=== PATIENT | male | born 1970 | race Caucasian/White ===

== ENCOUNTER 2017-04-26 11:25 | Emergency (ER) | payer BC ==
[~2017-04-26] VITALS: Ht 182.9 cm; Wt 86.2 kg
[~2017-04-26 11:25] MED LIST: LOR5/325 PO
--- NOTE | 2017-04-26 11:36 | ER Report ---
History and Physical Time Seen By MD: 11:36 Hx. of Stated Complaint: left leg pain and back pain for 2 weeks. patient has been to urgent care and chiropractor HPI/ROS CHIEF COMPLAINT: Back pain, pain radiates down left leg HISTORY OF PRESENT ILLNESS: 46-year-old male patient presents to emergency room with complaint of back pain. Patient states that the pain started when he was traveling back from [place]. States he and his ago and therefore vacation. On returning he felt like being cramped in the airline seats cause the pain. He states that going to the truck and then coming home cause may be worse. He states that for couple days he didn't do anything and then he went and saw urgent care. He states that there he was diagnosed with sciatica and was placed on a muscle relaxer as well as anti-inflammatory. He states that that did not seem to help. He states that he then went to see a chiropractor who did some adjustments but states that he needed to follow-up with orthopedics. He states there is nothing seems to make the pain better. He states that today he has some tingling to his left foot. He has good strength with movement. REVIEW OF SYSTEMS: Respiratory: No cough, no dyspnea. Cardiovascular: No chest pain, no palpitations. Gastrointestinal: No vomiting, no abdominal pain. Musculoskeletal: As noted above Allergies: Coded Allergies: Penicillins (Verified Allergy, Unknown, 08/17/16) Home Meds Active Scripts Clonidine Hcl (CLONIDINE HCL) 0.1 Mg Tablet, 0.1 MG PO BID, #30 TAB Prov:SERGIO ROSAS 04/26/17 Cyclobenzaprine Hcl (CYCLOBENZAPRINE HCL) 10 Mg Tablet, 5-10 MG PO TID Y for MUSCLE SPASMS, #30 TAB Prov:SERGIO ROSAS 04/26/17 Methylprednisolone (METHYLPREDNISOLONE) 4 Mg Tab.ds.pk, 4 MG PO DIRECTED, #1 PACK Prov:SERGIO ROSAS 04/26/17 Hydrocodone Bit/Acetaminophen (HYDROCODON-ACETAMINOPHEN 5-325) 1 Each Tablet, 1 EACH PO Q4-6H Y for PAIN, #12 TAB Prov:SERGIO ROSAS 04/26/17 Reported Medications Ibuprofen (IBUPROFEN) 200 Mg Tablet, 1 TAB PO Q6H, TAB 04/26/17 Discontinued Scripts Hydrocodone Bit/Acetaminophen (HYDROCODON-ACETAMINOPHEN 5-325) 1 Each Tablet, 1 EACH PO Q4-6H, #10 TAB 0 Refills Prov:JOEL POTTS [employer] DIRECT[employer] 08/17/16 Past Medical/Surgical History Patient has a past medical history of back injury. Patient has surgical history of a disc removal. Reviewed Nurses Notes: Yes Hx Substance Use Disorder: No Constitutional Vital Sign - Last 24 Hours 04/26/17 04/26/17 04/26/17 04/26/17 11:29 11:32 11:33 11:40 Temp 98.6 Pulse 108 102 Resp 20 B/P (MAP) 198/134 198/134 (155) 196/130 (152) Pulse Ox 93 94 O2 Delivery Room Air 04/26/17 04/26/17 04/26/17 04/26/17 11:55 12:00 12:23 12:25 Pulse 84 94 B/P (MAP) 176/112 (133) 175/136 (149) Pulse Ox 95 96 04/26/17 04/26/17 04/26/17 04/26/17 12:30 12:45 13:00 13:05 Pulse 92 89 82 87 B/P (MAP) 175/116 (135) 176/125 (142) Pulse Ox 94 96 94 95 04/26/17 04/26/17 04/26/17 13:10 13:15 13:20 Pulse 92 90 B/P (MAP) 198/124 (148) Pulse Ox 95 93 Physical Exam General Appearance: The patient is alert, has no immediate need for airway protection and no current signs of toxicity. ENT: Tympanic membranes are pearly-contreras, auditory canals are patent, mucous membranes are moist. Respiratory: Chest is non tender, lungs are clear to auscultation. Cardiac: regular rate and rhythm Gastrointestinal: Abdomen is soft and non tender, no masses, bowel sounds normal. Musculoskeletal: Neck: Neck is supple and non tender. Extremities have full range of motion and are non tender. Back: Patient has tenderness to the low back, seems to be worse over the sciatica, however does have pain over the lateral aspect of the left buttock seems to radiate down the leg with palpation. Patient had good sensation and was able to do a straight leg lift. Skin: No rashes or lesions. DIFFERENTIAL DIAGNOSIS: After history and physical exam differential diagnosis was considered for sciatica, back strain, bulging disc, compressed nerve. Medical Decision Making EKG/Imaging Imaging Lumbar spine Indication: Back pain radiating down left leg Comparison: None available FINDINGS: 5 views of the lumbar spine were obtained. There are 5 lumbar type vertebral bodies. The lumbar alignment is normal. No lumbar compression fracture. Mild degenerative disc disease L4-L5. The oblique views reveal mild facet osteoarthritis of the low lumbar spine bilaterally. IMPRESSION: 1. Degenerative disc disease of mild severity L4-L5. 2. 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 Report Dictated By: Steven Wright at 04/26/2017 12:33 PM Report E-Signed By: Steven Wright at 04/26/2017 12:36 PM SACROILIAC JOINTS 3 OR > VIEWS Indication: Back pain radiating into the lower legs. Comparison: None available. Findings: Frontal and both oblique views are obtained of the bilateral sacroiliac joints. The sacroiliac joints appear normal. No joint centered abnormality. No evidence of sacroiliitis. Pubic symphysis and sacroiliac joints are appropriately aligned. IMPRESSION: 1. Normal bilateral sacroiliac joints. Report Dictated By: Steven Wright at 04/26/2017 12:36 PM Report E-Signed By: Steven Wright at 04/26/2017 12:37 PM ED Course/Re-evaluation ED Course Patient was admitted and examined, history and physical were obtained. Differential diagnoses were considered. On reexamination patient had tenderness to the left hip, and up to the back. X-rays done of the lumbar spine, SI joints. The SI joints are unremarkable, patient had mild degenerative disc disease in the L4-L5 region. I discussed findings with the patient. With no acute findings we will go ahead and place him on prednisone as I believe that he is having some nerve root impingement starting in the low back. We will go ahead and place the patient on a Medrol Dosepak, give him a limited supply of pain medication as well as muscle relaxer. He is to follow-up with orthopedics. I did give him information for Dr. Telles. I discussed this with the patient who verbalized understanding and agreement with plan. Decision to Disposition Date: Apr 26, 2017 Decision to Disposition Time: 12:51 Depart Departure Latest Vital Signs Vital Signs Date Time Temp Pulse Resp B/P (MAP) Pulse Ox O2 Delivery O2 Flow Rate FiO2 04/26/17 13:20 198/124 (148) 04/26/17 13:15 90 93 04/26/17 11:29 98.6 20 Room Air Impression: Primary Impression: Low back pain Additional Impression: Hypertension Condition: Improved Disposition: HOME OR SELF-CARE Referrals: FADY TELLES MD New Scripts Clonidine Hcl (CLONIDINE HCL) 0.1 Mg Tablet 0.1 MG PO BID, #30 TAB Prov: SERGIO ROSAS 04/26/17 Cyclobenzaprine Hcl (CYCLOBENZAPRINE HCL) 10 Mg Tablet 5-10 MG PO TID Y for MUSCLE SPASMS, #30 TAB Prov: SERGIO ROSAS 04/26/17 Methylprednisolone (METHYLPREDNISOLONE) 4 Mg Tab.ds.pk 4 MG PO DIRECTED, #1 PACK Prov: SERGIO ROSAS 04/26/17 Hydrocodone Bit/Acetaminophen (HYDROCODON-ACETAMINOPHEN 5-325) 1 Each Tablet 1 EACH PO Q4-6H Y for PAIN, #12 TAB Prov: SERGIO ROSAS 04/26/17 Patient Instructions: Acute Low Back Pain (ED) Additional Instructions: Limit activity by pain. Get plenty of rest. Return to the ER if condition worsens. Take prescriptions as prescribed. Follow up with Dr. Telles at [facility]. Follow up with a primary care provider to discuss your blood pressure. Th goal is to decrease inflammation along the nerve root and decrease you discomfort. Problem Qualifiers Primary Impression: Low back pain Chronicity: acute Back pain laterality: left Sciatica presence: with sciatica Sciatica laterality: sciatica of left side Qualified Codes: M54.42 - Lumbago with sciatica, left side Additional Impression: Hypertension Hypertension type: unspecified Qualified Codes: I10 - Essential (primary) hypertension SERGIO ROSAS Apr 26, 2017 11:36
[2017-04-26] MEDS ORDERED: IBUP-56 PO (11:37)
--- NOTE | 2017-04-26 12:40 | RADIOLOGY IMAGING REPORT ---
FACILITY: [facility] - [place] PATIENT NAME: Juan Carlos Mcghee : 1970 MR: [id number] V: [id number] EXAM DATE: ORDERING PHYSICIAN: SERGIO ROSAS TECHNOLOGIST: Location: [facility] - [place] Patient: Juan Carlos Mcghee : 1970 Visit/Account:[id number] Date of Sevice: 04/26/2017 Lumbar spine Indication: Back pain radiating down left leg Comparison: None available FINDINGS: 5 views of the lumbar spine were obtained. There are 5 lumbar type vertebral bodies. The lumbar alignment is normal. No lumbar compression fracture. Mild degenerative disc disease L4-L5. The oblique views reveal mild facet osteoarthritis of the low l umbar spine bilaterally. IMPRESSION: 1. Degenerative disc disease of mild severity L4-L5. 2. 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 Report Dictated By: Steven Wright at 04/26/2017 12:33 PM Report E-Signed By: Steven Wright at 04/26/2017 12:36 PM WSN:[id number]
--- NOTE | 2017-04-26 12:42 | RADIOLOGY IMAGING REPORT ---
FACILITY: [facility] - [place] PATIENT NAME: Juan Carlos Mcghee : 1970 MR: [id number] V: [id number] EXAM DATE: ORDERING PHYSICIAN: SERGIO ROSAS TECHNOLOGIST: Location: [facility] [place] Patient: Juan Carlos Mcghee : 1970 Visit/Account:[id number] Date of Sevice: 04/26/2017 SACROILIAC JOINTS 3 OR > VIEWS Indication: Back pain radiating into the lower legs. Comparison: None available. Findings: Frontal and both oblique views are obtained of the bilateral sacroiliac joints. The sacroiliac joints appear normal. No joint centered abnormality. No evidence of sacroiliitis. Pubic symphysis and sacro iliac joints are appropriately aligned. IMPRESSION: 1. Normal bilateral sacroiliac joints. Report Dictated By: Steven Wright at 04/26/2017 12:36 PM Report E-Signed By: Steven Wright at 04/26/2017 12:37 PM WSN:[id number]
[2017-04-26] MEDS ORDERED: APAP/HYDROCODONE 325/5 TAB PO ONE (12:50)
[2017-04-26] MEDS ORDERED: cloNIDine HCL 0.1 MG TAB PO ONE (12:50)
[2017-04-26] MEDS ORDERED: HYDR-385 PO (12:53)
[2017-04-26] MEDS ORDERED: CLON-327 PO (12:53)
[2017-04-26] MEDS ORDERED: CYCL10TA29 PO (12:53)
[2017-04-26] MEDS ORDERED: METH4TAB66 PO (12:53)
[2017-04-26 13:20] VITALS: BP 198/124
== END 2017-04-26 13:28 | disposition home or self-care (01) ==
LOC: ER 11:35
DX: M54.42 Lumbago with sciatica, left side (principal); I10 Essential (primary) hypertension
CPT/HCPCS: 72120; 72202; 99283

== ENCOUNTER → 2017-05-28 | Outpatient (REF) | payer BC ==
[~2017-05-28] MED LIST changes: +CLON-327 PO; +CYCL10TA29 PO; +HYDR-385 PO; +IBUP-56 PO; +METH4TAB66 PO
[2017-05-28 12:59] LABS: PLATELET COUNT, AUTOMATED 374 K/uL (150-450)
== END ==
PROVIDERS: ATTEND Nurse Practitioner Family
DX: Z01.818 Encounter for other preprocedural examination (principal)
CPT/HCPCS: 82040; 82247; 82310; 82374; 82435; 82565; 82947; 84075; 84132; 84155; 84295; 84450; 84460; 84520; 85025

== ENCOUNTER → 2017-05-28 | Outpatient (REF) | payer BC | LOC: ZZSENDIN 12:43 | PROVIDERS: ATTEND Nurse Practitioner Family | DX: Z02.9 Encounter for administrative examinations, unspecified (principal) ==

== ENCOUNTER 2018-02-09 13:46 | Emergency (ER) | payer BC ==
[2018-02-09] MEDS ORDERED: LABETALOL HCL 100 MG/20ML VIAL ONE (14:11)
--- NOTE | 2018-02-09 14:16 | EKG ---
FACILITY: [facility] PATIENT NAME: ISABELL RANDOLPH : [id number] MR: [id number] V: [id number] EXAM DATE: ORDERING PHYSICIAN: TRACE ANDRADE TECHNOLOGIST: SALOME Test Reason : CP Blood Pressure : / mmHG Vent. Rate : 088 BPM Atrial Rate : 088 BPM P-R Int : 132 ms QRS Dur : 094 ms QT Int : 424 ms P-R-T Axes : 055 066 054 degrees QTc Int : 513 ms Normal sinus rhythm Prolonged QT No ST-T abnormalities No previous ECGs available Confirmed by DIANNA RYAN ([id number]) on 02/09/2018 6:14:01 PM Referred By: LUPE Confirmed By:DIANNA RYAN
[2018-02-09 14:20] LABS: PLATELET COUNT, AUTOMATED 353 K/uL (150-450)
[2018-02-09 14:24] LABS: INR 0.98
[2018-02-09] MEDS ORDERED: LABETALOL HCL 100 MG/20ML VIAL IVP ONE (14:30)
--- NOTE | 2018-02-09 14:35 | RADIOLOGY IMAGING REPORT ---
FACILITY: [facility] PATIENT NAME: Juan Carlos Mcghee : 1970 MR: [id number] V: [id number] EXAM DATE: ORDERING PHYSICIAN: TRACE ANDRADE TECHNOLOGIST: Location: [facility] Patient: Juan Carlos Mcghee : 1970 Visit/Account:[id number] Date of Sevice: 02/09/2018 EXAMINATION: CT head without IV contrast HISTORY: Stroke alert. TECHNIQUE: Axial CT images of the head were obtained from the vertex to the skull base without IV c ontrast, with coronal and sagittal 2D reconstructed images. One of the following dose optimization techniques was utilized in the performance of this exam: Autom ated exposure control; adjustment of the mA and/or kV according to the patient's size; or use of an i terative reconstruction technique. Specific details can be referenced in the facility's radiology C T exam operational policy. COMPARISON: None. FINDINGS: There is mild patchy low attenuation change in the periventricular white matter bilaterally. Punctate focus of decreased attenuation in the right basal ganglia likely represents an old lacunar infarct. No CT evidence of intracranial hemorrhage, mass lesion, or acute infarct. No midline shift or extra-a xial fluid collections. Aviles-white differentiation is maintained. The calvarium is intact. The partially visualized paranasal sinuses and mastoid air cells are unopaci fied. IMPRESSION: 1. No evidence of intracranial hemorrhage or other acute intracranial pathology. 2. There is mild patchy low attenuation change in the periventricular white matter bilaterally. This is nonspecific. Differential considerations include early chronic small vessel ischemic change, demye linating disease, or sequela of old infection or inflammation. 3. Punctate hypodensity in the right basal ganglia likely represents an old lacunar infarct. Findings were discussed with TRACE ANDRADE at 02/09/2018 2:28 PM. Report Dictated By: Derik Meneses MD at 02/09/2018 2:25 PM Report E-Signed By: Derik Meneses MD at 02/09/2018 2:31 PM WSN:[id number]
[2018-02-09] MEDS ORDERED: NS(*) 0.9% 50 ML BAG 50 ML ONE (14:38)
[2018-02-09] MEDS ORDERED: IOPAMIDOL 76% 75 ML INFUS BTL 75 ML ONE (14:38)
[2018-02-09] MEDS ORDERED: ONDANSETRON 4 MG/2 ML VIAL ONE (14:40)
[2018-02-09] MEDS ORDERED: ONDANSETRON 4 MG/2 ML VIAL IVP ONE (14:40)
--- NOTE | 2018-02-09 14:57 | RADIOLOGY IMAGING REPORT ---
FACILITY: [facility] PATIENT NAME: Juan Carlos Mcghee : 1970 MR: [id number] V: [id number] EXAM DATE: ORDERING PHYSICIAN: TRACE ANDRADE TECHNOLOGIST: Location: [facility] Patient: Juan Carlos Mcghee : 1970 Visit/Account:[id number] Date of Sevice: 02/09/2018 Exam type: CHEST SINGLE AP History: shortness of breath Comparison: July 28, 2017. Findings: The lungs are free of acute effusions, infiltrates or edema. EKG leads project over the thorax. The cardiac silhouette is normal in size. There is no evidence of a pneumothorax or pneumomediastinum. IMPRESSION: 1. No acute cardiac pulmonary process is seen Report Dictated By: Debi Ariza MD at 02/09/2018 2:51 PM Report E-Signed By: Debi Ariza MD at 02/09/2018 2:52 PM WSN:[email or web address]
--- NOTE | 2018-02-09 15:12 | ER Report ---
History and Physical Time Seen By MD: 13:50 Hx. of Stated Complaint: Onset slurred speech, right-sided facial droop, right-sided weakness onset yesterday, worse when he woke this a.m. HPI/ROS CHIEF COMPLAINT: right sided weakness HISTORY OF PRESENT ILLNESS: Patient presents approximately 26 hours after the onset of REVIEW OF SYSTEMS: Constitutional: [No fever, no chills.] Eyes: [No discharge.] ENT: [No sore throat.] Cardiovascular: [No chest pain, no palpitations.] Respiratory: [No cough, no shortness of breath.] Gastrointestinal: [No abdominal pain, no vomiting.] Genitourinary: [No hematuria.] Musculoskeletal: [No back pain.] Skin: [No rashes.] Neurological: [No headache.] Remainder of the 14 system rev: Yes Allergies: Coded Allergies: Penicillins (Verified Allergy, Unknown, 08/17/16) Home Meds Discontinued Reported Medications Ibuprofen (IBUPROFEN) 200 Mg Tablet, 1 TAB PO Q6H, TAB 04/26/17 Discontinued Scripts Clonidine Hcl (CLONIDINE HCL) 0.1 Mg Tablet, 0.1 MG PO BID, #30 TAB Prov:SERGIO ROSAS 04/26/17 Cyclobenzaprine Hcl (CYCLOBENZAPRINE HCL) 10 Mg Tablet, 5-10 MG PO TID PRN for MUSCLE SPASMS, #30 TAB Prov:SERGIO ROSAS 04/26/17 Methylprednisolone (METHYLPREDNISOLONE) 4 Mg Tab.ds.pk, 4 MG PO DIRECTED, #1 PACK Prov:SERGIO ROSAS 04/26/17 Hydrocodone Bit/Acetaminophen (HYDROCODON-ACETAMINOPHEN 5-325) 1 Each Tablet, 1 EACH PO Q4-6H PRN for PAIN, #12 TAB Prov:SERGIO ROSAS 04/26/17 Reviewed Nurses Notes: Yes Hx Smoking: Yes Smoking Status: Current: Every Day Smoker Hx Substance Use Disorder: No Constitutional Vital Sign - Last 24 Hours 02/09/18 02/09/18 02/09/18 02/09/18 13:51 13:51 13:56 14:00 Pulse 99 98 Resp 98 15 B/P (MAP) 204/140 204/140 (161) 173/127 (142) Pulse Ox 95 95 81 O2 Delivery Room Air 02/09/18 02/09/18 02/09/1820/18 14:06 14:11 14:15 14:16 Pulse 98 98 83 Resp 14 14 20 B/P (MAP) 171/120 (137) 178/115 (136) Pulse Ox 93 92 91 02/09/18 02/09/18 02/09/18 02/09/18 14:20 14:21 14:25 14:26 Pulse 85 86 Resp 19 8 B/P (MAP) 188/127 (147) 172/124 (140) Pulse Ox 93 93 02/09/18 02/09/18 02/09/18 02/09/18 14:31 14:35 14:36 14:40 Pulse ? B/P (MAP) ???/??? (1665) 184/127 (146) Pulse Ox 93 02/09/18 02/09/18 02/09/18 02/09/18 14:41 14:45 14:46 14:50 Pulse ??? 97 Resp 12 B/P (MAP) 174/143 (153) 173/113 (133) Pulse Ox 94 02/09/18 02/09/18 02/09/18 02/09/18 14:51 14:55 14:56 14:58 Pulse 86 84 Resp 14 10 B/P (MAP) 164/146 (152) 171/114 (133) Pulse Ox 93 95 O2 Delivery Nasal Cannula Nasal Cannula O2 Flow Rate 2 2 02/09/18 02/09/18 02/09/18 15:01 15:05 15:06 Pulse 83 84 Resp 16 10 B/P (MAP) 167/113 (131) Pulse Ox 96 96 O2 Delivery Nasal Cannula Nasal Cannula O2 Flow Rate 2 2 Physical Exam General Appearance: The patient is alert, has no immediate need for airway protection and no signs of toxicity. he is tolerating secretions Eyes: Pupils equal and round no pallor or injection. ENT, Mouth: Mucous membranes are moist. Respiratory: There are no retractions, lungs are clear to auscultation. Cardiovascular: Regular rate and rhythm. Gastrointestinal: Abdomen is soft and non tender, no masses, bowel sounds normal. Neurological: right facial droop, slurring of speech, right arm weakness; mild right leg weakness; NIHSS: 4 Skin: Warm and dry, no rashes. Musculoskeletal: Neck is supple non tender. Extremities are nontender, nonswollen and have full range of motion. DIFFERENTIAL DIAGNOSIS: After history and physical exam differential diagnosis was considered for cva, intracranial hemorrhage, infection or other etiology of symptoms. Medical Decision Making Data Points Result Diagram: 02/09/18 1357 02/09/18 1357 Laboratory Hematology Test 02/09/18 13:57 Red Blood Count 5.33 M/uL (4.00-5.60) Mean Corpuscular Volume 90.4 fL (80.0-96.0) Mean Corpuscular Hemoglobin 31.7 pg (26.0-33.0) Mean Corpuscular Hemoglobin Concent 35.1 g/dL (32.0-36.0) Red Cell Distribution Width 12.6 % (11.5-14.5) Mean Platelet Volume 8.3 fL (7.2-11.1) Neutrophils (%) (Auto) 68.9 % (39.4-72.5) Lymphocytes (%) (Auto) 21.2 % (17.6-49.6) Monocytes (%) (Auto) 7.2 % (4.1-12.4) Eosinophils (%) (Auto) 2.0 % (0.4-6.7) Basophils (%) (Auto) 0.7 % (0.3-1.4) Nucleated RBC Relative Count (auto) 0.0 /100WBC Neutrophils # (Auto) 8.5 K/uL (2.0-7.4) Lymphocytes # (Auto) 2.6 K/uL (1.3-3.6) Monocytes # (Auto) 0.9 K/uL (0.3-1.0) Eosinophils # (Auto) 0.2 K/uL (0.0-0.5) Basophils # (Auto) 0.1 K/uL (0.0-0.1) Nucleated RBC Absolute Count (auto) 0.00 K/uL Prothrombin Time 13.0 seconds (12.0-14.4) Prothromb Time International Ratio 0.98 Activated Partial Thromboplast Time 35 seconds (23-35) Sodium Level 141 mmol/L (137-145) Potassium Level 3.2 mmol/L (3.5-5.0) Chloride Level 105 mmol/L (98-107) Carbon Dioxide Level 26 mmol/L (22-30) Blood Urea Nitrogen 10 mg/dl (9-21) Creatinine 0.80 mg/dl (0.66-1.25) Glomerular Filtration Rate Calc > 60.0 Random Glucose 119 mg/dl (75-110) Calcium Level 9.4 mg/dl (8.4-10.2) Total Bilirubin 0.9 mg/dl (0.2-1.3) Aspartate Amino Transf (AST/SGOT) 37 U/L (0-35) Alanine Aminotransferase (ALT/SGPT) 36 U/L (0-56) Alkaline Phosphatase 79 U/L (0-126) Troponin I 0.022 ng/ml Total Protein 7.9 g/dl (6.3-8.2) Albumin 4.4 g/dl (3.5-5.0) Chemistry Test 02/09/18 13:57 White Blood Count 12.3 k/uL (4.5-11.0) Red Blood Count 5.33 M/uL (4.00-5.60) Hemoglobin 16.9 g/dL (14.0-18.0) Hematocrit 48.2 % (42.0-52.0) Mean Corpuscular Volume 90.4 fL (80.0-96.0) Mean Corpuscular Hemoglobin 31.7 pg (26.0-33.0) Mean Corpuscular Hemoglobin Concent 35.1 g/dL (32.0-36.0) Red Cell Distribution Width 12.6 % (11.5-14.5) Platelet Count 353 K/uL (150-450) Mean Platelet Volume 8.3 fL (7.2-11.1) Neutrophils (%) (Auto) 68.9 % (39.4-72.5) Lymphocytes (%) (Auto) 21.2 % (17.6-49.6) Monocytes (%) (Auto) 7.2 % (4.1-12.4) Eosinophils (%) (Auto) 2.0 % (0.4-6.7) Basophils (%) (Auto) 0.7 % (0.3-1.4) Nucleated RBC Relative Count (auto) 0.0 /100WBC Neutrophils # (Auto) 8.5 K/uL (2.0-7.4) Lymphocytes # (Auto) 2.6 K/uL (1.3-3.6) Monocytes # (Auto) 0.9 K/uL (0.3-1.0) Eosinophils # (Auto) 0.2 K/uL (0.0-0.5) Basophils # (Auto) 0.1 K/uL (0.0-0.1) Nucleated RBC Absolute Count (auto) 0.00 K/uL Prothrombin Time 13.0 seconds (12.0-14.4) Prothromb Time International Ratio 0.98 Activated Partial Thromboplast Time 35 seconds (23-35) Glomerular Filtration Rate Calc > 60.0 Calcium Level 9.4 mg/dl (8.4-10.2) Total Bilirubin 0.9 mg/dl (0.2-1.3) Aspartate Amino Transf (AST/SGOT) 37 U/L (0-35) Alanine Aminotransferase (ALT/SGPT) 36 U/L (0-56) Alkaline Phosphatase 79 U/L (0-126) Troponin I 0.022 ng/ml Total Protein 7.9 g/dl (6.3-8.2) Albumin 4.4 g/dl (3.5-5.0) Coagulation Test 02/09/18 13:57 Prothrombin Time 13.0 seconds Prothromb Time International Ratio 0.98 Activated Partial Thromboplast Time 35 seconds EKG/Imaging EKG Interpretation 12 lead EKG: Rhythm: normal sinus rhythm [place]: normal QRS: normal ST segments: normal prolonged QT no stemi Monitor Interpretation: Normal Sinus Rhythm ED Course/Re-evaluation ED Course Pt presents wtih sgs/symptoms of cva that began 26 hrs ago; CT/CTA unremarkable for acute findings though CT c/w ischemic disease. No change in ED. Pt presented sig hypertensive; improved with labetalol. Telestroke utilized; agrees with plan to tx; neurologist/hospitalist Dr. Bishop accepting at [facility]. Decision to Disposition Date: Feb 09, 2018 Decision to Disposition Time: 15:43 Critical Care Time I spent a total of 60 minutes of critical care time in obtaining history, performing a physical exam, bedside monitoring of interventions, collecting and interpreting tests and discussion with consultants but not including time spent performing procedures. Depart Departure Latest Vital Signs Vital Signs Date Time Temp Pulse Resp B/P (MAP) Pulse Ox O2 Delivery O2 Flow Rate FiO2 02/09/18 15:06 84 10 96 Nasal Cannula 2 02/09/18 15:05 167/113 (131) Impression: Primary Impression: CVA (cerebral vascular accident) Additional Impression: Uncontrolled hypertension Condition: Condition Unchanged Disposition: XFER TO ACUTE CARE HOSPITAL Problem Qualifiers Primary Impression: CVA (cerebral vascular accident) CVA mechanism: unspecified Qualified Codes: I63.9 - Cerebral infarction, unspecified TRACE ANDRADE MD Feb 09, 2018 15:12
--- NOTE | 2018-02-09 15:23 | RADIOLOGY IMAGING REPORT ---
[place] [facility] [place]: Juan Carlos Mcghee : 1970 MR: [id number] V: [id number] EXAM DATE: ORDERING PHYSICIAN: TRACE ANDRADE TECHNOLOGIST: Location: [facility] - [place] Patient: Juan Carlos Mcghee : 1970 Visit/Account:[id number] Date of Sevice: 02/09/2018 EXAMINATION: CTA of the head and neck with IV contrast HISTORY: CVA. Evaluate for thrombus. TECHNIQUE: Thin axial CT images of the head and neck were obtained with IV contrast during maximal ar terial opacification, from the aortic arch through the vertex. Reconstruction of the source data set includes multiplanar 2D sagittal and coronal images, and 3D coronal thin slab MIP images. Representat corwin images have been stored on PACS. Stenosis calculations are performed using the NASCET criteria. One of the following dose optimization techniques was utilized in the performance of this exam: Autom ated exposure control; adjustment of the mA and/or kV according to the patient's size; or use of an i terative reconstruction technique. Specific details can be referenced in the facility's radiology C T exam operational policy. Contrast: 75 mL of IV Isovue-370. COMPARISON: Noncontrast head CT performed earlier today. FINDINGS: Vascular findings: Aortic arch and great vessels: The aortic arch is patent and normal in caliber. Conventional arch mikey karime. There is mild plaque at the origin of the left subclavian artery with 20% narrowing. Right CCA/ICA: There is mild plaque at the right carotid bifurcation without stenosis. The right CCA and ICA are patent and normal in caliber. Left CCA/ICA: Mild plaque at the left carotid bifurcation with 20% narrowing along the proximal ICA. The left CCA and ICA are otherwise normal in caliber. Vertebrobasilar: The bilateral vertebral arteries are patent and normal in caliber, with left vertebr al dominance. The basilar artery is negative. [place]: Negative. CHARITO distribution: Negative. MCA distribution: Negative. PIGMENT F[employer]NACE TENDER distribution: Negative. Additional nonvascular findings: No acute osseous findings. Normal alignment along the cervical spine with mild spondylotic changes. P rior right mastoidectomy. The paranasal sinuses and mastoid air cells are unopacified. IMPRESSION: 1. Mild carotid atherosclerosis at the bifurcations, without evidence of hemodynamically significant stenosis. 2. Otherwise unremarkable CTA of the head and neck. No evidence of any large vessel occlusive disease . Findings were discussed with TRACE ANDRADE at 02/09/2018 3:16 PM. Report Dictated By: Derik Meneses MD at 02/09/2018 3:03 PM Report E-Signed By: Derik Meneses MD at 02/09/2018 3:19 PM WSN:[id number]
--- NOTE | 2018-02-09 15:24 | RADIOLOGY IMAGING REPORT ---
FACILITY: [facility] PATIENT NAME: Juan Carlos Mcghee : 1970 MR: [id number] V: [id number] EXAM DATE: ORDERING PHYSICIAN: TRACE ANDRADE TECHNOLOGIST: Location: [facility] Patient: Juan Carlos Mcghee : 1970 Visit/Account:[id number] Date of Sevice: 02/09/2018 EXAMINATION: CTA of the head and neck with IV contrast HISTORY: CVA. Evaluate for thrombus. TECHNIQUE: Thin axial CT images of the head and neck were obtained with IV contrast during maximal ar terial opacification, from the aortic arch through the vertex. Reconstruction of the source data set includes multiplanar 2D sagittal and coronal images, and 3D coronal thin slab MIP images. Representat corwin images have been stored on PACS. Stenosis calculations are performed using the NASCET criteria. One of the following dose optimization techniques was utilized in the performance of this exam: Autom ated exposure control; adjustment of the mA and/or kV according to the patient's size; or use of an i terative reconstruction technique. Specific details can be referenced in the facility's radiology C T exam operational policy. Contrast: 75 mL of IV Isovue-370. COMPARISON: Noncontrast head CT performed earlier today. FINDINGS: Vascular findings: Aortic arch and great vessels: The aortic arch is patent and normal in caliber. Conventional arch mikey karime. There is mild plaque at the origin of the left subclavian artery with 20% narrowing. Right CCA/ICA: There is mild plaque at the right carotid bifurcation without stenosis. The right CCA and ICA are patent and normal in caliber. Left CCA/ICA: Mild plaque at the left carotid bifurcation with 20% narrowing along the proximal ICA. The left CCA and ICA are otherwise normal in caliber. Vertebrobasilar: The bilateral vertebral arteries are patent and normal in caliber, with left vertebr al dominance. The basilar artery is negative. Deeth of [place]: Negative. CHARITO distribution: Negative. MCA distribution: Negative. KNOCK OUT HAND distribution: Negative. Additional nonvascular findings: No acute osseous findings. Normal alignment along the cervical spine with mild spondylotic changes. P rior right mastoidectomy. The paranasal sinuses and mastoid air cells are unopacified. IMPRESSION: 1. Mild carotid atherosclerosis at the bifurcations, without evidence of hemodynamically significant stenosis. 2. Otherwise unremarkable CTA of the head and neck. No evidence of any large vessel occlusive disease . Findings were discussed with TRACE ANDRADE at 02/09/2018 3:16 PM. Report Dictated By: Derik Meneses MD at 02/09/2018 3:03 PM Report E-Signed By: Derik Meneses MD at 02/09/2018 3:19 PM WSN:[id number]
[2018-02-09] MEDS ORDERED: NICOTINE 21 MG/24 HR PATCH TD ONE (16:05)
[2018-02-09 16:15] VITALS: BP 159/109
== END 2018-02-09 16:37 | disposition short-term general hospital (02) ==
LOC: ER 14:05
DX: I63.9 Cerebral infarction, unspecified (principal); I10 Essential (primary) hypertension
CPT/HCPCS: 70450; 70496; 70498; 71045; 84484; 85025; 85610; 85730; 93005; 96374; J2405; J3490; J7050; Q9967; 82040; 82247; 82310; 82374; 82435; 82565; 82947; 84075; 84132; 84155; 84295; 84450; 84460; 84520; 99291

== ENCOUNTER → 2018-02-09 | Outpatient (CLI) | payer BC | LOC: AMB 16:23 | PROVIDERS: ATTEND Nurse Practitioner | DX: I63.9 Cerebral infarction, unspecified (principal) | CPT/HCPCS: A0425; A0426 ==

== ENCOUNTER 2018-04-21 14:19 | Outpatient (RCR) | payer BC ==
[~2018-04-21 14:19] MED LIST changes: +AMLO-125 PO; +ASPI-1471 PO; +ATOR-1 PO; +CLOP75TA PO; +FLU60SYR36 IM; +VAR05PT PO; +VARE1TAB3 PO
--- NOTE | 2018-04-21 16:49 | SPEECH INITIAL EVALUATION ---
SPEEH AND LANGUAGE EVALUATION REPORT NAME: Juan Carlos Mcghee EVALUATION DATE: 04/21/2018 DATE OF : [birth year] DIAGNOSIS: Mild dysarthria (Flaccid) EXAMINER: Elizabeth Bishop MS, CCC-RF MANAGER PHYSICIAN: Felix Mcduffie MD BACKGROUND The patient is a 47 year old male referred for an ST assessment at [facility] due to residual speech deficits associated with acute lacunar infarct in the posterior limb of the left internal capsule occurring in January 2018. 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 He enjoys spending time hunting, fishing, and hiking. ASSESSMENT The Perceptual Dysarthria Evaluation was completed with the following results: Oromotor Evaluation: R labial weakness and subtle droop at rest. Missing upper dentition with dentures in place. Coordination, ROM otherwise WNL. Respiration: mild impairment. Shallow breathing and tendency to speak on air in connected speech. Reduced breath support resulted in decreased speaking loudness. 16 second maximum phonation time (20 seconds is considered WNL). Normal s/z ratio. Phonation: WNL Resonance: WNL Prosody: WNL Articulation: mild impairment. Consonant imprecision with alveolars, sibilants, and affricates. Increased imprecision observed in connected speech vs sounds, words, and phrases. Intelligibility: 95% in connected speech, 100% in sounds, words, and phrases. Expressive and receptive language skills were informally evaluated via pt participation in complex conversation related to medical history, occupational responsibilities, and personal hobbies. No deficits observed in expression or comprehension of spoken language. The pt denies any word finding deficits. SUMMARY Pt presents with mild dysarthria characterized by imprecise consonant production, decreased respiratory support, and reduced speaking loudness in conversation. Overall intelligibility was high; however, the pt is bothered by his slurred speaking quality with specific distortion of alveolars, sibliants, and affricates. The pt reports this affects his workplace responsibilities, particularly while attempting to speak via radio. The pt also endorses reduction in speaking loudness s/p CVA. Based on evaluation results, motor speech interventions are warranted to provide patient instruction in behavioral compensations and exercises to minimize functional impact of changes in speech production on home, community, and vocational activities. An individualized tx plan and home program will be established and trained. Prognosis: Good. Strong motivation to participate. Recommendations ST 1x/wk, 6 wks POC Short Term Goals 1. Pt will independently utilize compensatory speech strategies (e.g., over- articulation, slowed rate, increased loudness) to improve intelligibility to 100% in conversation. 2. Pt will independently complete oral exercise program to improve labial seal and movement of the articulators. Frame Operator Goal Pt will demonstrate functional, intelligible speech production to improve participation in conversation at home, in the workplace, and in the community. Thank you for this referral. Please call [phone] Elizabeth Bishop M.S., CCC-RF MANAGER Physician Signature Date [*] MTDD
--- NOTE | 2018-05-12 15:16 | SLP DISCHARGE NOTE ---
SPEECH and LANGUAGE PATHOLOGY DISCHARGE SUMMARY Physician: Dr. Felix Mcduffie End of Care: 05/12/18 Clinician: Elizabeth Bishop M.S., CCC-SEAT NAILER Patient: Juan Carlos Mcghee : [birth year] Mr. Juan Carlos Mcghee was evaluated by [facility] to address residual speech deficits associated with acute lacunar infarct in the posterior limb of the left internal capsule occurring in January 2018. He missed two scheduled visits following his initial evaluation, and has only attended one treatment session. Evaluation results indicated mild dysarthria characterized by imprecise consonant production, decreased respiratory support, and reduced speaking loudness in conversation. Speech deficits appear to have largely resolved over time despite minimal participation in skilled interventions. Speaking loudness and respiratory support were within normal limits during Mr. Rivera most recent ST encounter. Articulation remains very subtly imprecise; however, Mr. Mcghee quickly demonstrated independent capacity to implement compensatory motor speech strategies with 100% intelligibility at the conversational level. The following goals were established following Mr. Rivera initial assessment: Short Term Goals 1. Pt will independently utilize compensatory speech strategies (e.g., over- articulation, slowed rate, increased loudness) to improve intelligibility to 100% in conversation. MET 2. Pt will independently complete oral exercise program to improve labial seal and movement of the articulators. MET / No longer warranted. Labial droop/reduced seal appears to have resolved. Oral exercise program not necessary. Articulators WNL. Halfway Goal Pt will demonstrate functional, intelligible speech production to improve participation in conversation at home, in the workplace, and in the community. MET SUMMARY Mr. Mcghee and his spouse are in agreement that residual speech deficits have largely resolved, and that speech difficulties are no longer impacting his participation in home, community, or vocational settings. He was provided with a packet of home exercises and suggestions, and was encouraged to contact his physician regarding any recurring impairments. All goals have been met. ST to discharge at this time. Thank you for referring this patient to [facility], Speech- Language Pathology. Please call [phone] to contact the SEAT NAILER with questions or concerns. Respectfully, Elizabeth Bishop M.S., CCC-SEAT NAILER Physician Signature Date [*] MTDD
[2018-06-14] MEDS ORDERED: VARE1TAB3 PO (12:59)
[2018-06-14] MEDS ORDERED: VAR05PT PO (12:59)
[2018-06-14] MEDS ORDERED: AMLO-127 PO (13:01)
[2018-06-14] MEDS ORDERED: OMEG-11 PO (13:38)
[2018-06-15] MEDS ORDERED: ATOR-1 PO (14:04)
[2018-06-16] MEDS ORDERED: LISI-362 PO (11:48)
== END 2018-07-20 ==
LOC: ST 14:19
PROVIDERS: ATTEND Internal Medicine
DX: I69.328 Other speech and language deficits following cerebral infarction (principal)
CPT/HCPCS: 92523

== ENCOUNTER → 2018-05-24 | Outpatient (CLI) | payer BC | LOC: LAB 08:17 | PROVIDERS: ATTEND Psychiatry & Neurology Neurology | DX: E78.00 Pure hypercholesterolemia, unspecified (principal) | CPT/HCPCS: 36415; 82465; 83718; 84478 ==

== ENCOUNTER → 2018-06-14 | Outpatient (CLI) | payer BC ==
[~2018-06-14] MED LIST changes: +AMLO-127 PO; +OMEG-11 PO
[2018-06-14 13:40] LABS: PLATELET COUNT, AUTOMATED 331 K/uL (150-450)
== END ==
LOC: LAB 13:11
PROVIDERS: ATTEND Internal Medicine
DX: I63.9 Cerebral infarction, unspecified (principal); E78.5 Hyperlipidemia, unspecified; I10 Essential (primary) hypertension; Z71.6 Tobacco abuse counseling
CPT/HCPCS: 36415; 81001; 82040; 82247; 82310; 82374; 82435; 82565; 82947; 83735; 84075; 84132; 84153; 84155; 84295; 84443; 84450; 84460; 84520; 85025